=== PATIENT | female | born 1975 | race Caucasian/White ===

== ENCOUNTER 2016-10-27 01:54 | Emergency (ER) | payer SELFPAY ==
--- NOTE | 2016-10-27 07:34 | RAD ---
LEFT KNEE 4 VIEWS HISTORY: Left knee pain and swelling. Frontal, lateral, and bilateral oblique views of the left knee. COMPARISON: None. ALIGNMENT: Grossly unremarkable.. JOINT SPACES: Preserved. JOINT EFFUSION: Large joint effusion. CALCIFICATIONS: No abnormal calcifications noted. FRACTURE: No displaced acute fracture. SOFT TISSUES: Apparent soft tissue edema. IMPRESSION: Soft tissue edema and large joint effusion. No joint space narrowing, malalignment, or displaced fracture.
--- NOTE | 2016-10-27 07:51 | US ---
LEFT LOWER EXTREMITY VENOUS ULTRASOUND HISTORY: Left knee swelling. Sonography of the left lower extremity was performed, with a focus on the venous structures. FINDINGS: COMMON FEMORAL VEIN: Patent and compressible. SUPERFICIAL FEMORAL VEIN: Patent and compressible. POPLITEAL VEIN: Patent and compressible. PROXIMAL CALF VEINS: Patent and compressible. RESPIRATORY AUGMENTATION OF FLOW: Present. ABNORMAL FLUID COLLECTIONS: Cystic collection measuring 2.9 x 1.9 x 1.3 cm at the posterior lateral aspect of a noncompressible nature. IMPRESSION: No sonographic evidence of left lower extremity deep venous thrombosis. 2.9 cm posterior lateral fluid collection, possibly Lloyd's cyst. Preliminary report relayed to the Emergency Medicine medical service by Dr. Frye on 10/27/2016 at 0355 hours.
== END 2016-10-27 04:04 | disposition home or self-care (01) ==
LOC: ED 01:54
DX: M71.22 Synovial cyst of popliteal space [Baker], left knee (principal); M25.562 Pain in left knee

== ENCOUNTER 2016-12-04 17:03 | Emergency (ER) | payer SELFPAY ==
--- NOTE | 2016-12-04 18:32 | RAD ---
KNEE- LEFT 4 OR MORE VIEWS COMPARISON: Left knee 4 views, 10/27/2016 HISTORY: Left knee pain worsening over the last 1 1/2 months. FINDINGS: Views: Left knee AP, internal rotation, external rotation, and lateral Alignment: Normal. Bones: Normal bone mineralization. Minimal osteophytes. Joints: Mild effusion. Soft tissues: Normal. IMPRESSION: 1. Mild effusion of left knee. Minimal osteoarthritis.
== END 2016-12-04 17:53 | disposition home or self-care (01) ==
LOC: ED 17:03
DX: M71.22 Synovial cyst of popliteal space [Baker], left knee (principal); L93.0 Discoid lupus erythematosus; F17.210 Nicotine dependence, cigarettes, uncomplicated